=== PATIENT | male | born 1980 | race Caucasian/White ===

== ENCOUNTER 2017-09-21 01:51 | Day surgery (SDC) | payer OTHER ==
[~2017-09-21] VITALS: Ht 190.5 cm; Wt 142.4 kg
[~2017-09-21 01:51] MED LIST: OMEP-137 PO; RIZA10TA24 PO
[2017-09-21] MEDS ORDERED: PROPOFOL EMUL(*) 10MG/ML 20 ML 20 ML ONE (07:19)
--- NOTE | 2017-09-21 07:26 | Post Operative Progress Note ---
Post Operative Progress Note Date: Sep 21, 2017 Time: 11:23 Surgeon: niko Anesthesia: dr maxwell Pre-Op Diagnosis: heartburn Post-Op Diagnosis: normal egd Procedure(s): egd with biopsy TRACIE BRYSON MD Sep 21, 2017 07:26
--- NOTE | 2017-09-21 07:27 | Short(Outpt) Discharge Summary ---
Discharge Summary Reason for Hosp/Final Diag: (1) Heartburn Hospital Course & Plan: normal egd Departure Discharge to: Home Discharge Instructions Home Meds Reported Medications Rizatriptan Benzoate (MAXALT [employer] DEVELOPER) 10 Mg Tab.rapdis, 10 MG PO DAILY Y for MIGRAINE 09/15/17 Omeprazole (OMEPRAZOLE) 20 Mg Tablet.dr, 20 MG PO HS, TAB 09/15/17 Diet: Regular Activity: As Tolerated TRACIE BRYSON MD Sep 21, 2017 07:27
[2017-09-21 09:46] VITALS: BP 144/94
[2017-09-21] MEDS ORDERED: LIDOCAINE/SOD BICARB 8.4% SYR ID ONE (10:40)
[2017-09-21] MEDS ORDERED: NORMOSOL R SOLN(*) 1000 ML BAG 1,000 ML IV PRN (10:40)
[2017-09-21 11:51] VITALS: BP 118/83
[2017-09-21 11:54] VITALS: BP 121/89
[2017-09-21 11:56] VITALS: BP 118/93
--- NOTE | 2017-09-22 04:35 | OPERATIVE REPORT 1 ---
EVENT DATE: September 21, 2017 SURGEON: Vinny Wetzel MD ANESTHESIOLOGIST: Tyson Coe MD ANESTHESIA: IV Sedation. PREOPERATIVE DIAGNOSIS Heartburn. POSTOPERATIVE DIAGNOSIS Normal appearing esophagogastroduodenoscopy. PROCEDURE PERFORMED Esophagogastroduodenoscopy with biopsy for H. pylori. DESCRIPTION OF PROCEDURE The patient was placed in left lateral decubitus position, given intravenous sedation. Flexible gastroscope was inserted, advanced. GE junction was right at 40 cm, distinct. No ulceration, inflammation, no ring. We passed through the stomach, which was empty, through pylorus to the second and third portions of the duodenum, which were normal. Duodenal bulb was normal. Pylorus was normal. Antrum was normal. Body of the stomach appeared to be normal. Scope was retroflexed. I could not identify any fundic lesions, nor could I identify a hiatal hernia. Scope was then slowly withdrawn, and the esophagus was again visualized and appeared to be normal. [facility]
== END 2017-09-21 12:01 | disposition home or self-care (01) ==
LOC: OR 01:51
PROVIDERS: ATTEND Surgery
DX: R12 Heartburn (principal)
CPT/HCPCS: 43239; 87077; J2704

== ENCOUNTER 2018-05-01 00:51 | Day surgery (SDC) | payer OTHER ==
[~2018-05-01] VITALS: Ht 190.5 cm; Wt 154.7 kg
[~2018-05-01 00:51] MED LIST changes: +ESOM40CA42 PO
[2018-05-01] MEDS ORDERED: fentaNYL CITR 250 MCG/5 ML AMP ONE (07:37)
[2018-05-01] MEDS ORDERED: PROPOFOL EMUL(*) 10MG/ML 20 ML 40 ML ONE (07:38)
[2018-05-01] MEDS ORDERED: LIDOCAINE 2% IV 100 MG/5ML SYR ONE (07:39)
[2018-05-01 08:09] VITALS: BP 114/88
[2018-05-01] MEDS ORDERED: LIDOCAINE/SOD BICARB 8.4% SYR ID ONE (08:25)
[2018-05-01] MEDS ORDERED: MIDAZOLAM 2 MG/2 ML VIAL IVP PRN (08:25)
[2018-05-01] MEDS ORDERED: NORMOSOL R SOLN(*) 1000 ML BAG 1,000 ML IV PRN (08:25)
[2018-05-01] MEDS ORDERED: BUPIVACAINE/EPI 0.5% 50ML VIAL INFIL ONE (08:53)
[2018-05-01] MEDS ORDERED: DEXAMETHASONE SOD 4 MG/ML VIAL ONE (08:58)
[2018-05-01] MEDS ORDERED: ONDANSETRON 4 MG/2 ML VIAL ONE (08:59)
[2018-05-01] MEDS ORDERED: KETOROLAC 30 MG/ML VIAL ONE (08:59)
[2018-05-01] MEDS ORDERED: ceFAZolin(*) 1 GM VIAL 3 GM in NS(*) 0.9% 100 ML BAG 100 ML IVPB ONE (09:00)
[2018-05-01] MEDS ORDERED: SUGAMMADEX SOD 500 MG/5 ML SDV ONE (09:14)
[2018-05-01] MEDS ORDERED: fentaNYL CITR 100 MCG/2 ML AMP ONE ×2 (09:40→10:32)
[2018-05-01] MEDS ORDERED: TRAM-420 PO (10:33)
--- NOTE | 2018-05-01 10:40 | Short(Outpt) Discharge Summary ---
Discharge Summary Reason for Hosp/Final Diag: (1) Umbilical hernia Hospital Course & Plan: 37 yo m presented for umb hernia repair. he tolerated the procedure well and there were no complications. he will be discharged home when criteria met. Departure Discharge to: Home Discharge Instructions Home Meds Active Scripts Tramadol Hcl (TRAMADOL HCL) 50 Mg Tablet, 50 MG PO Q4H PRN for PAIN, #30 TAB Prov:SHIVAM VALENTIN 05/01/18 Reported Medications Esomeprazole Magnesium (NEXIUM) 40 Mg Capsule.dr, 1 CAP PO QDAY, CAP 04/04/18 Diet: Regular Activity: No Heavy Lifting Special Instructions: no lifting more than 15 lbs for 4 wks ok to removed bandage and shower in 2 days take stool softener whild taking pain meds please call to make 2 wk follow up appt with dr. valentin ([phone]) SHIVAM VALENTIN May 01, 2018 10:40
--- NOTE | 2018-05-01 10:42 | Post Operative Progress Note ---
Post Operative Progress Note Date: May 01, 2018 Time: 10:41 Surgeon: dr. hernesto valentin Mixer Diamond Powder: none Anesthesia: gen, local dr. maxwell Pre-Op Diagnosis: umb hernia Post-Op Diagnosis: same Findings: 2 small hernias Procedure(s): open umb hernia repair with mesh Specimen Removed:(May be N/A): none Complications: none Fluids: iv crystalloid Estimated Blood Loss: minimal Date OP Note Dictated: May 01, 2018 Time OP Note Dictated: 10:42 SHIVAM VALENTIN May 01, 2018 10:42
[2018-05-01 10:58] VITALS: BP 117/81
[2018-05-01 11:30] VITALS: BP 131/66
[2018-05-01] MEDS ORDERED: traMADol 50 MG TAB ONE (11:35)
--- NOTE | 2018-05-01 11:45 | OPERATIVE REPORT 1 ---
EVENT DATE: May 01, 2018 SURGEON: José Antonio Parker MD ANESTHESIOLOGIST: Tyson Coe MD ANESTHESIA: General and local. TEST FIXTURE ASSEMBLER: None. PREOPERATIVE DIAGNOSIS Umbilical hernia. POSTOPERATIVE DIAGNOSIS Umbilical hernia. PROCEDURE PERFORMED Open umbilical hernia repair with mesh. FLUIDS IV Crystalloids. ESTIMATED BLOOD LOSS Minimal. SPECIMENS None. COMPLICATIONS None. INDICATIONS This is a 37-year-old male with a small umbilical hernia that is bothersome to him. Risks and benefits of the procedure were explained and consent was signed. DESCRIPTION OF PROCEDURE The patient was taken to the operating room and placed in the supine position. General anesthesia was administered per the anesthesia team. The patient was prepped and draped in normal sterile fashion. Local analgesia was injected in the dermis by the umbilicus and a curved incision was made over the umbilicus. Dissection was carried down bluntly with electrocautery down to the fascia. I then dissected bluntly around the umbilical stump and took the umbilical stump off the attenuated fascia. The area anterior to the fascia was cleared for approximately 1 cm. Posterior to the fascia in the preperitoneal space, this area was cleared for several centimeters. I did note a very small hernia less than 1 cm just above the small umbilical hernia, and this was closed with a [id number] 0 Prolene stitch. I then used a 4.3 cm Proceed ventral patch. This was made to lie flat and covered both hernia defects. It was secured with transfascial stitches through the limbs of the mesh with 2-0 Prolene stitches. The limbs were then trimmed, the fascia was closed transversely with a running 0 Prolene stitch. Local analgesia was injected into the fascia. The umbilical stump was tacked down to the fascia with a 3-0 Vicryl stitch. Deep dermal 3-0 Vicryl stitches were used to approximate the edges of the wound and a running 4- 0 Monocryl subcuticular stitch was used to close the skin. Appropriate dressings were applied. The patient tolerated the procedure well. There were no complications. [facility]TDD
[2018-05-01 12:05] VITALS: BP 109/84
[2018-05-01 12:08] VITALS: BP 116/78
== END 2018-05-01 10:58 | disposition home or self-care (01) ==
LOC: OR 00:51
PROVIDERS: ATTEND Surgery
DX: K42.9 Umbilical hernia without obstruction or gangrene (principal)
CPT/HCPCS: 49585; J0690; J1100; J1885; J2001; J2405; J2704; J3010; J7050